=== PATIENT | female | born 1965 | race Caucasian/White ===

== ENCOUNTER 2022-10-28 15:54 | Emergency (ER) | payer OTHER ==
[~2022-10-28] VITALS: Ht 162.6 cm; Wt 90.7 kg
[2022-10-28] MEDS ORDERED: KETO.5OPSO RIGHTEYE (17:02)
[2022-10-28 17:34] VITALS: BP 130/87
== END 2022-10-28 17:27 | disposition home or self-care (01) ==
LOC: ER 15:54
DX: S05.01XA Injury of conjunctiva and corneal abrasion without foreign body, right eye, initial encounter (principal); X58.XXXA Exposure to other specified factors, initial encounter; H54.62 Unqualified visual loss, left eye, normal vision right eye
CPT/HCPCS: 99283; A9270

== ENCOUNTER 2022-11-10 12:22 | Emergency (ER) | payer OTHER ==
[~2022-11-10] VITALS: Ht 165.1 cm; Wt 90.7 kg
[~2022-11-10 12:22] MED LIST: KETO.5OPSO RIGHTEYE
[2022-11-10 13:03] LABS: Source, Urine Clean Catch
[2022-11-10 13:06] LABS: Bilirubin, Urine Neg (Neg); Blood, Urine Neg (Neg); Color, Urine Yellow (P-Yellow); Glucose Qualitative, Urine Neg (Neg); Ketones, Urine Neg (Neg); Leukocyte Esterase, Urine 1+ (Neg); Nitrite, Urine Neg (Neg); Protein, Urine Neg (Neg); Urobilinogen, Urine 2+ (Normal)
[2022-11-10 13:25] LABS: Appearance, Urine Hazy (Clear)
[2022-11-10 13:26] LABS: Bacteria Mod /hpf; Red Blood Cells, Urine 0-2 /hpf (0-2); Squamous Epithelial Cells Mod /hpf (Few)
[2022-11-10 14:49] LABS: Source, Urine Straight Cath
[2022-11-10 14:52] LABS: Appearance, Urine Clear (Clear); Bilirubin, Urine Neg (Neg); Blood, Urine Neg (Neg); Color, Urine Yellow (P-Yellow); Glucose Qualitative, Urine Neg (Neg); Ketones, Urine Neg (Neg); Leukocyte Esterase, Urine Neg (Neg); Nitrite, Urine Neg (Neg); Protein, Urine Neg (Neg); Urobilinogen, Urine 2+ (Normal)
[2022-11-10 15:05] LABS: Bun/Creatinine Ratio 15.4 (12.0-20.0); Calcium, Blood 8.5 mg/dL (8.5-10.1); Creatinine, Blood 0.84 mg/dL (0.40-1.00); Potassium, Blood 3.6 mmol/L (3.5-5.5)
[2022-11-10 16:02] LABS: Albumin, Blood 3.2 g/dL (3.4-5.0); Bilirubin, Direct 1.4 mg/dL (0.0-0.3); Bilirubin, Indirect 0.7 mg/dL (0.1-0.7); Bilirubin, Total 2.1 mg/dL (0.1-1.0); Globulin, Blood 3.2 g/dL (2.2-4.0); Total Protein, Blood 6.4 g/dL (6.4-8.2)
[2022-11-10 16:15] LABS: BASOPHILS ABSOLUTE AUTO 0.08 K/mm3 (0.00-0.23); BASOPHILS PERCENT AUTO 2 % (0-2); EOSINOPHILS ABSOLUTE AUTO 0.11 K/mm3 (0.00-0.68); EOSINOPHILS PERCENT AUTO 3 % (0-6); Hematocrit 35.8 % (33.0-51.0); Hemoglobin 12.1 g/dL (11.5-16.0); IMMATURE GRAN ABSOLUTE AUTO 0.01 K/mm3 (0.00-0.10); IMMATURE GRAN PERCENT AUTO 0 % (0-1); LYMPHOCYTES ABSOLUTE AUTO 1.27 K/mm3 (0.84-5.20); LYMPHOCYTES PERCENT AUTO 29 % (21-46); MONOCYTES ABSOLUTE AUTO 0.44 K/mm3 (0.16-1.47); MONOCYTES PERCENT AUTO 10 % (4-13); Mean Corpuscular HGB 31.3 pg (26.0-34.0); Mean Corpuscular HGB Conc 33.8 g/dL (31.5-36.5); Mean Corpuscular Volume 93 fL (80-100); Mean Platelet Volume 9.3 fL (9.1-12.4); NEUTROPHILS ABSOLUTE AUTO 2.45 K/mm3 (1.96-9.15); NEUTROPHILS PERCENT AUTO 56 % (41-73); Platelet Count 213 K/mm3 (150-400); RDW Coefficient Variation 12.4 % (11.7-14.2); RDW Standard Deviation 42.3 fL (35.1-46.3); Red Blood Cell Count 3.87 M/mm3 (3.80-5.20); White Blood Cell Count 4.36 K/mm3 (4.00-11.30)
[2022-11-10] MEDS ORDERED: IBUP600 PO (17:09)
[2022-11-10 17:33] VITALS: BP 140/84
[2022-11-11] MEDS ORDERED: ONDA4ODT MM (17:38)
== END 2022-11-10 17:32 | disposition home or self-care (01) ==
LOC: ER 12:22
PROVIDERS: Student in an Organized Health Care Education/Training Program
DX: E80.6 Other disorders of bilirubin metabolism (principal); R74.8 Abnormal levels of other serum enzymes; R74.01 Elevation of levels of liver transaminase levels; R16.0 Hepatomegaly, not elsewhere classified; R10.9 Unspecified abdominal pain; E86.0 Dehydration; Z91.013 Allergy to seafood
CPT/HCPCS: 51701; 76705; 76770; 80048; 80076; 81001; 81003; 85025; 87086; 96361; 96374; 96375; 99284-25; J1885; J2405; J7030

== ENCOUNTER 2022-11-11 15:40 | Emergency (ER) | payer OTHER ==
[~2022-11-11] VITALS: Ht 165.1 cm; Wt 90.7 kg
[~2022-11-11 15:40] MED LIST changes: +IBUP600 PO
[2022-11-11 15:49] VITALS: BP 136/79
[2022-11-11 16:05] LABS: BASOPHILS ABSOLUTE AUTO 0.07 K/mm3 (0.00-0.23); BASOPHILS PERCENT AUTO 2 % (0-2); EOSINOPHILS ABSOLUTE AUTO 0.07 K/mm3 (0.00-0.68); EOSINOPHILS PERCENT AUTO 2 % (0-6); Hematocrit 36.4 % (33.0-51.0); Hemoglobin 12.4 g/dL (11.5-16.0); IMMATURE GRAN ABSOLUTE AUTO 0.01 K/mm3 (0.00-0.10); IMMATURE GRAN PERCENT AUTO 0 % (0-1); LYMPHOCYTES ABSOLUTE AUTO 0.99 K/mm3 (0.84-5.20); LYMPHOCYTES PERCENT AUTO 23 % (21-46); MONOCYTES ABSOLUTE AUTO 0.28 K/mm3 (0.16-1.47); MONOCYTES PERCENT AUTO 7 % (4-13); Mean Corpuscular HGB 31.2 pg (26.0-34.0); Mean Corpuscular HGB Conc 34.1 g/dL (31.5-36.5); Mean Corpuscular Volume 92 fL (80-100); Mean Platelet Volume 9.4 fL (9.1-12.4); NEUTROPHILS ABSOLUTE AUTO 2.86 K/mm3 (1.96-9.15); NEUTROPHILS PERCENT AUTO 67 % (41-73); Platelet Count 222 K/mm3 (150-400); RDW Coefficient Variation 12.3 % (11.7-14.2); RDW Standard Deviation 41.6 fL (35.1-46.3); Red Blood Cell Count 3.97 M/mm3 (3.80-5.20); White Blood Cell Count 4.28 K/mm3 (4.00-11.30)
[2022-11-11 16:27] LABS: Albumin, Blood 3.7 g/dL (3.4-5.0); Albumin/Globulin Ratio 0.9 (0.8-1.8); Bilirubin, Direct 0.4 mg/dL (0.0-0.3); Bilirubin, Indirect 0.5 mg/dL (0.1-0.7); Bilirubin, Total 0.9 mg/dL (0.1-1.0); Bun/Creatinine Ratio 13.7 (12.0-20.0); Calcium, Blood 8.6 mg/dL (8.5-10.1); Creatinine, Blood 0.73 mg/dL (0.40-1.00); Globulin, Blood 3.9 g/dL (2.2-4.0); Total Protein, Blood 7.6 g/dL (6.4-8.2)
[2022-11-11] MEDS ORDERED: ONDA4ODT MM (17:38)
[2022-11-12 08:13] LABS: HBSAG SCREEN Negative (Negative); HCV AB Non Reactive (Non Reactive); HEP A AB, IGM Negative (Negative); HEP B CORE AB, IGM Negative (Negative)
[2022-11-12] MEDS ORDERED: KLONOPIN0.5 M9 PO (10:07)
[2022-11-12] MEDS ORDERED: GABAPENTIN600 MG PO (10:07)
[2022-11-12] MEDS ORDERED: PROZAC2010 PO (10:07)
[2022-11-12] MEDS ORDERED: PRAZ5 PO (10:08)
[2022-11-12] MEDS ORDERED: Inderal40 MG PO (10:08)
[2022-11-12] MEDS ORDERED: RISP3 PO (10:09)
[2022-11-12] MEDS ORDERED: CLOMIPRAMINE HC PO (10:10)
== END 2022-11-11 17:56 | disposition home or self-care (01) ==
LOC: ER 15:40
PROVIDERS: Physician Assistant
DX: R11.2 Nausea with vomiting, unspecified (principal); R74.01 Elevation of levels of liver transaminase levels; R10.9 Unspecified abdominal pain; Z91.013 Allergy to seafood; Z88.2 Allergy status to sulfonamides; Z88.1 Allergy status to other antibiotic agents; Z91.041 Radiographic dye allergy status; Z79.899 Other long term (current) drug therapy
CPT/HCPCS: 80048; 80074; 80076; 83690; 85025; 96374; 99284-25; J2405

== ENCOUNTER 2022-11-12 08:53 | Observation (INO) | payer OTHER ==
[~2022-11-12] VITALS: Ht 165.1 cm; Wt 90.7 kg
[~2022-11-12 08:53] MED LIST changes: +ONDA4ODT MM
[2022-11-12 09:26] LABS: BASOPHILS ABSOLUTE AUTO 0.06 K/mm3 (0.00-0.23); BASOPHILS PERCENT AUTO 1 % (0-2); EOSINOPHILS ABSOLUTE AUTO 0.03 K/mm3 (0.00-0.68); EOSINOPHILS PERCENT AUTO 0 % (0-6); Hematocrit 38.7 % (33.0-51.0); Hemoglobin 13.5 g/dL (11.5-16.0); IMMATURE GRAN ABSOLUTE AUTO 0.03 K/mm3 (0.00-0.10); IMMATURE GRAN PERCENT AUTO 0 % (0-1); LYMPHOCYTES ABSOLUTE AUTO 1.47 K/mm3 (0.84-5.20); LYMPHOCYTES PERCENT AUTO 13 % (21-46); MONOCYTES ABSOLUTE AUTO 0.68 K/mm3 (0.16-1.47); MONOCYTES PERCENT AUTO 6 % (4-13); Mean Corpuscular HGB 31.5 pg (26.0-34.0); Mean Corpuscular HGB Conc 34.9 g/dL (31.5-36.5); Mean Corpuscular Volume 90 fL (80-100); Mean Platelet Volume 9.1 fL (9.1-12.4); NEUTROPHILS ABSOLUTE AUTO 9.41 K/mm3 (1.96-9.15); NEUTROPHILS PERCENT AUTO 81 % (41-73); Platelet Count 245 K/mm3 (150-400); RDW Coefficient Variation 12.1 % (11.7-14.2); RDW Standard Deviation 40.1 fL (35.1-46.3); Red Blood Cell Count 4.29 M/mm3 (3.80-5.20); White Blood Cell Count 11.68 K/mm3 (4.00-11.30)
[2022-11-12 09:26] LABS: Source, Urine Clean Catch
[2022-11-12 09:33] LABS: Appearance, Urine Clear (Clear); Bilirubin, Urine Neg (Neg); Blood, Urine 1+ (Neg); Color, Urine Yellow (P-Yellow); Glucose Qualitative, Urine Neg (Neg); Ketones, Urine Neg (Neg); Leukocyte Esterase, Urine Neg (Neg); Nitrite, Urine Neg (Neg); Protein, Urine 1+ (Neg); Urobilinogen, Urine NORM (Normal)
[2022-11-12 09:49] LABS: Squamous Epithelial Cells Mod /hpf (Few); Transitional Epithelial Cells Few /hpf (0-Rare)
[2022-11-12 09:50] LABS: Bacteria Few /hpf; White Blood Cells, Urine 0-2 /hpf (0-5)
[2022-11-12 09:51] LABS: Amorphous Light (0-Heavy)
[2022-11-12 09:51] LABS: Ethanol (Alcohol), Blood, Med <3 mg/dL; Salicylate <1.7 mg/dL (2.8-20.0); Thyroxine (T4) 8.5 ug/dL (4.8-13.9)
[2022-11-12 09:52] LABS: U Amphetamine Screen Not Detected; U Barbituate Screen Not Detected; U Benzodiazapine Screen Not Detected; U Buprenorphine Screen Not Detected; U Cannabinoids Screen Not Detected; U Cocaine Screen Not Detected; U Methadone Screen Not Detected; U Methamphetamine Screen Not Detected; U Opiates Screen Not Detected; U Oxycodone Screen Not Detected; U Phencyclidine Screen Not Detected; U Propoxyphene Screen Not Detected
[2022-11-12 10:02] LABS: Acetaminophen, Random <2.0 ug/mL (10.0-30.0); Alanine Aminotransfer (ALT/SGP 1013 U/L (12-78); Albumin, Blood 4.1 g/dL (3.4-5.0); Albumin/Globulin Ratio 1.1 (0.8-1.8); Alk Phos 604 U/L (50-136); Anion Gap 8 mmol/L (6-16); Aspartate Aminotrans (AST/SGOT 280 U/L (12-37); Bilirubin, Total 0.8 mg/dL (0.1-1.0); Blood Urea Nitrogen 5 mg/dL (8-24); Bun/Creatinine Ratio 8.4 (12.0-20.0); CO2, Blood 24 mmol/L (21-32); Calcium, Blood 9.2 mg/dL (8.5-10.1); Chloride, Blood 103 mmol/L (98-108); Globulin, Blood 3.9 g/dL (2.2-4.0); Glomerular Filtration Rate 104 (60-); Glucose, Blood 160 mg/dL (70-99); Sodium, Blood 135 mmol/L (136-145)
[2022-11-12] MEDS ORDERED: GABAPENTIN600 MG PO (10:07)
[2022-11-12] MEDS ORDERED: PROZAC2010 PO (10:07)
[2022-11-12] MEDS ORDERED: KLONOPIN0.5 M9 PO (10:07)
[2022-11-12] MEDS ORDERED: PRAZ5 PO (10:08)
[2022-11-12] MEDS ORDERED: Inderal40 MG PO (10:08)
[2022-11-12] MEDS ORDERED: RISP3 PO (10:09)
[2022-11-12] MEDS ORDERED: CLOMIPRAMINE HC PO (10:10)
[2022-11-12 18:53] LABS: Influenza A, PCR NEGATIVE (NEGATIVE); Influenza B, PCR NEGATIVE (NEGATIVE); Resp Syncytial Virus, PCR NEGATIVE (NEGATIVE); SARS-Cov-2 (COVID-19) PCR, MMC NEGATIVE (NEGATIVE)
[2022-11-12 20:06] VITALS: BP 124/82
== END 2022-11-13 22:34 | disposition home or self-care (01) ==
LOC: ER 08:53 → EOR 08:54
PROVIDERS: Physician Assistant; ADMIT Emergency Medicine
DX: F25.0 Schizoaffective disorder, bipolar type (principal); Z20.822 Contact with and (suspected) exposure to COVID-19
CPT/HCPCS: 0241U; 80053; 81001; 84436; 85025; 86592; 99285-25; A9270; G0378; G0480

== ENCOUNTER 2022-11-14 10:14 | Observation (INO) | payer OTHER ==
[~2022-11-14] VITALS: Ht 165.1 cm; Wt 90.7 kg
[~2022-11-14 10:14] MED LIST changes: +CLOMIPRAMINE HC PO; +GABAPENTIN600 MG PO; +Inderal40 MG PO; +KLONOPIN0.5 M9 PO; +PRAZ5 PO; +PROZAC2010 PO; +RISP3 PO
[2022-11-14 11:40] LABS: Source, Urine Clean Catch
[2022-11-14 11:48] LABS: BASOPHILS ABSOLUTE AUTO 0.08 K/mm3 (0.00-0.23); BASOPHILS PERCENT AUTO 1 % (0-2); EOSINOPHILS ABSOLUTE AUTO 0.17 K/mm3 (0.00-0.68); EOSINOPHILS PERCENT AUTO 2 % (0-6); Hematocrit 39.2 % (33.0-51.0); Hemoglobin 13.5 g/dL (11.5-16.0); IMMATURE GRAN ABSOLUTE AUTO 0.02 K/mm3 (0.00-0.10); IMMATURE GRAN PERCENT AUTO 0 % (0-1); LYMPHOCYTES ABSOLUTE AUTO 1.74 K/mm3 (0.84-5.20); LYMPHOCYTES PERCENT AUTO 22 % (21-46); MONOCYTES PERCENT AUTO 8 % (4-13); Mean Corpuscular HGB 31.1 pg (26.0-34.0); Mean Corpuscular HGB Conc 34.4 g/dL (31.5-36.5); Mean Corpuscular Volume 90 fL (80-100); Mean Platelet Volume 9.2 fL (9.1-12.4); NEUTROPHILS ABSOLUTE AUTO 5.28 K/mm3 (1.96-9.15); NEUTROPHILS PERCENT AUTO 67 % (41-73); Platelet Count 272 K/mm3 (150-400); RDW Coefficient Variation 11.8 % (11.7-14.2); RDW Standard Deviation 39.2 fL (35.1-46.3); Red Blood Cell Count 4.34 M/mm3 (3.80-5.20); White Blood Cell Count 7.89 K/mm3 (4.00-11.30)
[2022-11-14 11:56] LABS: Appearance, Urine Clear (Clear); Bilirubin, Urine Neg (Neg); Blood, Urine Neg (Neg); Color, Urine Yellow (P-Yellow); Glucose Qualitative, Urine Neg (Neg); Ketones, Urine Neg (Neg); Leukocyte Esterase, Urine Neg (Neg); Nitrite, Urine Neg (Neg); Protein, Urine Neg (Neg); Urobilinogen, Urine NORM (Normal)
[2022-11-14 11:59] LABS: Ethanol (Alcohol), Blood, Med 8 mg/dL; Salicylate <1.7 mg/dL (2.8-20.0)
[2022-11-14 12:00] LABS: Alanine Aminotransfer (ALT/SGP 507 U/L (12-78); Albumin, Blood 3.8 g/dL (3.4-5.0); Alk Phos 435 U/L (50-136); Anion Gap 5 mmol/L (6-16); Aspartate Aminotrans (AST/SGOT 45 U/L (12-37); Bilirubin, Total 0.9 mg/dL (0.1-1.0); Blood Urea Nitrogen 10 mg/dL (8-24); Bun/Creatinine Ratio 13.6 (12.0-20.0); CO2, Blood 26 mmol/L (21-32); Calcium, Blood 8.5 mg/dL (8.5-10.1); Chloride, Blood 97 mmol/L (98-108); Creatinine, Blood 0.74 mg/dL (0.40-1.00); Globulin, Blood 3.8 g/dL (2.2-4.0); Glomerular Filtration Rate 94 (60-); Glucose, Blood 107 mg/dL (70-99); Potassium, Blood 4.2 mmol/L (3.5-5.5); Sodium, Blood 128 mmol/L (136-145); Total Protein, Blood 7.6 g/dL (6.4-8.2)
[2022-11-14 12:01] LABS: Acetaminophen, Random <2.0 ug/mL (10.0-30.0)
[2022-11-14 12:09] LABS: U Amphetamine Screen Not Detected; U Barbituate Screen Not Detected; U Benzodiazapine Screen Not Detected; U Buprenorphine Screen Not Detected; U Cannabinoids Screen Not Detected; U Cocaine Screen Not Detected; U Methadone Screen Not Detected; U Methamphetamine Screen Not Detected; U Opiates Screen Not Detected; U Oxycodone Screen Not Detected; U Phencyclidine Screen Not Detected; U Propoxyphene Screen Not Detected
[2022-11-14 16:52] LABS: Influenza A, PCR NEGATIVE (NEGATIVE); Influenza B, PCR NEGATIVE (NEGATIVE); Resp Syncytial Virus, PCR NEGATIVE (NEGATIVE); SARS-Cov-2 (COVID-19) PCR, MMC NEGATIVE (NEGATIVE)
[2022-11-15 08:20] VITALS: BP 132/83
== END 2022-11-15 15:32 | disposition home or self-care (01) ==
LOC: ER 10:14 → EOR 10:15
PROVIDERS: ADMIT Emergency Medicine
DX: R45.851 Suicidal ideations (principal); R44.0 Auditory hallucinations; Z79.899 Other long term (current) drug therapy
CPT/HCPCS: 0241U; 80053; 81003; 81025; 85025; 86592; 93005; 93010; 99285-25; A9270; G0378; G0480